=== PATIENT | female | born 1990 | race Caucasian/White ===

== ENCOUNTER 2020-07-28 11:21 | Outpatient (CLI) | payer OTHER, MEDICAID, SELFPAY | END 2020-07-28 11:22 | disposition home or self-care (01) | PROVIDERS: Visit Provider Internal Medicine | DX: N91.2 Amenorrhea, unspecified (principal) | CPT/HCPCS: 84702 ==

== ENCOUNTER 2020-07-30 10:06 | Outpatient (CLI) | payer OTHER, MEDICAID, SELFPAY ==
[2020-07-30 11:08] LABS: HCG Quantitative 32.89 mIU/mL; Progesterone 10.16 ng/mL
== END 2020-07-30 10:07 | disposition home or self-care (01) ==
PROVIDERS: PCP Family Medicine; Visit Provider Obstetrics & Gynecology Reproductive Endocrinology
DX: N91.2 Amenorrhea, unspecified (principal)
CPT/HCPCS: 36415; 84144; 84702

== ENCOUNTER 2020-08-01 08:24 | Outpatient (CLI) | payer OTHER, MEDICAID, SELFPAY ==
[2020-08-01 09:25] LABS: HCG Quantitative 16.28 mIU/mL; Progesterone 0.433 ng/mL
== END 2020-08-01 08:25 | disposition home or self-care (01) ==
PROVIDERS: PCP Family Medicine; Visit Provider Obstetrics & Gynecology Reproductive Endocrinology
DX: N91.2 Amenorrhea, unspecified (principal)
CPT/HCPCS: 36415; 84144; 84702

== ENCOUNTER 2020-08-05 10:13 | Outpatient (CLI) | payer OTHER, MEDICAID, SELFPAY ==
[2020-08-05 11:31] LABS: HCG Quantitative 0.72 mIU/mL
== END 2020-08-05 10:14 | disposition home or self-care (01) ==
PROVIDERS: PCP Family Medicine; Visit Provider Nurse Practitioner Women's Health
DX: N92.6 Irregular menstruation, unspecified (principal)
CPT/HCPCS: 36415; 84702

== ENCOUNTER 2020-09-09 11:15 | Outpatient (CLI) | payer OTHER, MEDICAID, SELFPAY ==
[2020-09-09 12:28] LABS: HCG Quantitative 86.06 mIU/mL
[2020-09-09 13:31] LABS: Progesterone > 60.0 ng/mL
== END 2020-09-09 11:16 | disposition home or self-care (01) ==
PROVIDERS: PCP Family Medicine; Visit Provider Obstetrics & Gynecology Reproductive Endocrinology
DX: N92.6 Irregular menstruation, unspecified (principal)
CPT/HCPCS: 36415; 84144; 84702

== ENCOUNTER 2020-09-11 08:08 | Outpatient (CLI) | payer OTHER, MEDICAID, SELFPAY ==
[2020-09-11 08:58] LABS: Progesterone 53.76 ng/mL
== END 2020-09-11 08:09 | disposition home or self-care (01) ==
LOC: LAB 08:14
PROVIDERS: PCP Family Medicine; Visit Provider Obstetrics & Gynecology Reproductive Endocrinology
DX: N92.6 Irregular menstruation, unspecified (principal)
CPT/HCPCS: 36415; 84144; 84702

== ENCOUNTER 2020-10-11 10:54 | Emergency (ER) | payer OTHER, MEDICAID, SELFPAY ==
--- NOTE | 2020-10-11 | USR_ITS ---
NOTE: Report was unsigned for reason: Order was edited. Original Signature date and time was: 10/11/2020 1319 PROCEDURE INFORMATION: Exam: US First Trimester, Transabdominal. Additional Gestation. Exam date and time: 10/11/2020 11:32 AM Age: 30 years old Clinical indication: Lmp or gestational age (in weeks): 8 weeks 3 days; Other: Vaginal bleeding; ; Patient HX: Twins TECHNIQUE: Imaging protocol: Real-time transabdominal obstetrical ultrasound of the maternal pelvis and a first trimester with image documentation. Additional gestation was evaluated. COMPARISON: [facility] OB > 14 weeks 03/18/2017 9:09 AM FINDINGS: GESTATION: Number of fetuses: 2 (there are 2 gestational sacs) Multifetal identity: Baby B, and baby A Gestation: There are 2 Intrauterine gestation. Both with Yolk sac (A 4.8 mm) , (B 4 mm) . Heart rate: Baby A:189 BPM . Baby B: 176 BPM Placenta: Not formed baby A or B. No subchorionic bleed. Amniotic fluid: Amniotic and coelomic fluid are normal for gestational age. BIOMETRY: Gestational age (AUA): Baby A: CRL 1.9 cm 8 weeks 3 days CLARK 05/20/2021. Baby B: CRL 1.65 cm 8 weeks 1 day CLARK 05/22/2021. The uterus measures 12 cm x 6.5 cm x 7.3 cm A cervical myometrial cyst is seen 7 mm x 3.7 mm x 5.8 mm. Right ovary measures 4 cm x 3.7 cm x 2.8 cm. A follicular cyst is present 2 cm x 1.6 cm x 1.8 cm. The left ovary measures 4.5 cm x 2.9 cm x 3.1 cm The urinary bladder does not show intrinsic abnormalities. IMPRESSION: 1. Intrauterine twin gestation 2. Baby A 8 weeks 3 days CLARK 05/20/2020 was 3. Baby B 8 weeks 1 day CLARK 05/22/2021 4. Cervical myometrial cyst. 5. Left ovary follicular cyst 6. Negative uterine myometrium . 7. Urinary bladder is unremarkable MTDD
[2020-10-11 10:55] VITALS: BP 129/86; PULSE 113; RESP 18; TEMP 36.7; O2SAT 100; BMI 22.8
[2020-10-11 11:03] VITALS: BP 129/86; PULSE 95; RESP 18; O2SAT 100
[2020-10-11 11:15] VITALS: BP 129/86; PULSE 120; RESP 18; O2SAT 99
--- NOTE | 2020-10-11 11:15 | USR_ITS ---
NOTE: Report was unsigned for reason: Order was edited. Original Signature date and time was: 10/11/2020 1319 PROCEDURE INFORMATION: Exam: US First Trimester, Transabdominal. Additional Gestation. Exam date and time: 10/11/2020 11:32 AM Age: 30 years old Clinical indication: Lmp or gestational age (in weeks): 8 weeks 3 days; Other: Vaginal bleeding; ; Patient HX: Twins TECHNIQUE: Imaging protocol: Real-time transabdominal obstetrical ultrasound of the maternal pelvis and a first trimester with image documentation. Additional gestation was evaluated. COMPARISON: [facility] OB > 14 weeks 03/18/2017 9:09 AM FINDINGS: GESTATION: Number of fetuses: 2 (there are 2 gestational sacs) Multifetal identity: Baby B, and baby A Gestation: There are 2 Intrauterine gestation. Both with Yolk sac (A 4.8 mm) , (B 4 mm) . Heart rate: Baby A:189 BPM . Baby B: 176 BPM Placenta: Not formed baby A or B. No subchorionic bleed. Amniotic fluid: Amniotic and coelomic fluid are normal for gestational age. BIOMETRY: Gestational age (AUA): Baby A: CRL 1.9 cm 8 weeks 3 days CLARK 05/20/2021. Baby B: CRL 1.65 cm 8 weeks 1 day CLARK 05/22/2021. The uterus measures 12 cm x 6.5 cm x 7.3 cm A cervical myometrial cyst is seen 7 mm x 3.7 mm x 5.8 mm. Right ovary measures 4 cm x 3.7 cm x 2.8 cm. A follicular cyst is present 2 cm x 1.6 cm x 1.8 cm. The left ovary measures 4.5 cm x 2.9 cm x 3.1 cm The urinary bladder does not show intrinsic abnormalities. MTDD
--- NOTE | 2020-10-11 11:17 | ED_ITS ---
HPI - General: Chief complaint: Vaginal Bleeding Stated complaint: 8 WKS PREG: SPOTTING, DR SPARKLE PAULA[facility] Time Seen by Provider: 10/11/20 10:57 History of Present Illness: HPI Narrative: 30-year-old female G2, P1 at approximately 8 weeks gestation with a twin gestation.. She is to be seeing a Dr. Oro in [place]. She had been seeing Dr. Aranda. She states yesterday she had some dark blood/brownish discharge that seemed like blood. Today she is slightly reddish. She denies dysuria urgency or frequency no abdominal pain or cramping. She has previously had an ultrasound to confirm intrauterine . Significant abdominal pain no dysuria urgency or frequency. MD Complaint: vaginal bleeding Onset (ago): hour(s) Pain Consistency: intermittent Relieving factors: none Exacerbating factors: none Vaginal bleeding: light Patient : Yes OB History - Current : no complications OB History - Previous Pregnancies: no complications Associated symptoms: Deny abdominal pain, dyspareunia, dysuria, headache(s), malaise, nausea, rash, seizures, short of breath, syncope, vaginal bleeding, vaginal discharge, visual changes, vomiting or weakness Review of Systems Const: Denies: malaise ENMT: Denies: throat pain, ear or mastoid pain, nasal discharge or nasal congestion Card: Denies: syncope Resp: Denies: dyspnea, productive cough or non-productive cough GI: Denies: abdominal pain, nausea or vomiting : Denies: dysuria, vaginal discharge or dyspareunia Skin/Breast: Denies: rash or pruritus Neuro: Denies: headache(s) Physical Exam Const: COMMON NORMALS: no acute distress GENERAL APPEARANCE: cooperative and comfortable ORIENTATION/CONSCIOUSNESS: Yes awake, Yes oriented to person, Yes oriented to place and Yes oriented to time HENMT: COMMON NORMALS: normocephalic, atraumatic and hearing grossly normal bilaterally HEAD & SCALP: normocephalic and atraumatic Neck/C-Spine: COMMON NORMALS: no JVD Resp: COMMON NORMALS: normal respiratory effort, No retractions, No use of accessory muscles and clear to auscultation bilaterally AUSCULTATION: clear to auscultation bilaterally Cardio: COMMON NORMALS: no JVD, regular rate, regular rhythm and No murmurs present (Cardio) RATE: regular rate RHYTHM: regular rhythm GI: COMMON NORMALS: Soft to palpation and No hepatosplenomegaly present AUSCULTATION: Yes normoactive bowel sounds PALPATION: Yes Soft to palpation, No Tenderness to palpation present (GI), No Guarding due to palpation present (GI) and Yes No hepatosplenomegaly present : COMMON NORMALS: Yes no CVA tenderness BLADDER/KIDNEY EXAM: Yes no CVA tenderness SPECULUM EXAM - VAGINA: No vaginal bleeding OB/EXTERNAL & SPECU LUM: No vaginal bleeding OTHER: Patient placed in dorsolithotomy position no active bleeding vaginal introitus speculum introduced cervix visualized cultures done Back/Pelvis: COMMON NORMALS: no CVA tenderness Extremity: COMMON NORMALS: normal to inspection, capillary refill normal, no clubbing, cyanosis or edema, no calf tenderness and no pedal edema Neuro: SENSORIUM/ORIENTATION: Yes oriented to person, Yes oriented to place and Yes oriented to time Skin: COMMON NORMALS: no rashes or lesions noted GENERAL SKIN EXAM: no rashes or lesions noted Course Vital Signs: Vital signs: Vital Signs Temperature 98.1 F 10/11/20 10:55 Pulse Rate 120 H 10/11/20 11:15 Respiratory Rate 18 10/11/20 11:15 Blood Pressure 129/86 10/11/20 11:15 Pulse Oximetry 99 10/11/20 11:15 MDM - OB/Uterine Contractions MDM Narrative: Medical decision making narrative: No active vaginal bleeding noted on pelvic exam cultures done we will discharge patient follow-up with primary care return if has worsening symptoms Lab Data: Labs: Lab Results 10/11/20 10/11/20 10/11/20 Range/Units 11:18 11:18 11:18 WBC 6.5 (4.0-10.0) 10^3/ uL RBC 4.47 (4.1-5.3) 10^6/u L Hgb 13.7 (11.5-15.3) g/dL Hct 39.9 (37.0-47.0) % MCV 89.3 (81-99) fL MCH 30.6 (28.0-34.0) pg MCHC 34.3 (30.0-36.0) g/dL RDW 11.7 L (12.1-15.1) % Plt Count 223 (130-400) 10^3/c mm MPV 8.4 (7.4-10.4) fL Neut % (Auto) 76.8 % Lymph % (Auto) 13.0 % [place] % (Auto) 8.2 % Eos % (Auto) 1.1 % Baso % (Auto) 0.6 % Neut # (Auto) 4.96 (1.8-7.7) 10^3/u L Lymph # (Auto) 0.8 (0.8-4.8) 10^3/u L [place] # (Auto) 0.5 (0.2-0.9) 10^3/u L Eos # (Auto) 0.1 (0.0-0.8) 10^3/u L Baso # (Auto) 0.0 (0.0-0.1) 10^3/u L Nucleated RBC % (a uto) 0 % Nucleated RBCs # 0.0 /100WBC Sodium 136 (136-145) mmol/L Potassium 4.1 (3.5-5.1) mmol/L Chloride 104 (98-107) mmol/L Carbon Dioxide 23 (22-29) mmol/L Anion Gap 13.1 (5-19) BUN 6 (6-20) mg/dL Creatinine 0.5 (0.5-0.9) mg/dL GFR Calculation 146.9 H (90-130) mL/min Glucose 86 (65-115) mg/dL Calculated Osmolal ity 279 L (285-295) mOsm/k g Calcium 8.9 (8.5-10.5) mg/dL Total Bilirubin 0.3 (0.15-1.2) mg/dL AST 10 (0-32) U/L ALT 7 (0-33) U/L Alkaline Phosphata se 76 (35-105) IU/L Total Protein 7.3 (6.6-8.7) g/dL Albumin 4.6 (3.5-5.2) g/dL Globulin 2.7 (1.3-4.6) g/dL Ser , Jarad i-Qnt 571540.00 mIU/mL Urine Color (Yellow) Urine Appearance (CLEAR) Urine pH (5-7) Ur Specific Gravit y (1.005-1.030) Urine Protein (Negative) Urine Glucose (UA) (Normal) Urine Ketones (Negative) Urine Blood (Negative) Urine Nitrate (Negative) Urine Bilirubin (Negative) Urine Urobilinogen (Negative) mg/dL Ur Leukocyte Abiola ase (Negative) Blood Type A Positive Rho(D) Type Positive / 4+ 10/11/20 Range/Units 11:28 WBC (4.0-10.0) 10^3/ uL RBC (4.1-5.3) 10^6/u L Hgb (11.5-15.3) g/dL Hct (37.0-47.0) % MCV (81-99) fL MCH (28.0-34.0) pg MCHC (30.0-36.0) g/dL RDW (12.1-15.1) % Plt Count (130-400) 10^3/c mm MPV (7.4-10.4) fL Neut % (Auto) % Lymph % (Auto) % [place] % (Auto) % Eos % (Auto) % Baso % (Auto) % Neut # (Auto) (1.8-7.7) 10^3/u L Lymph # (Auto) (0.8-4.8) 10^3/u L [place] # (Auto) (0.2-0.9) 10^3/u L Eos # (Auto) (0.0-0.8) 10^3/u L Baso # (Auto) (0.0-0.1) 10^3/u L Nucleated RBC % (a uto) % Nucleated RBCs # /100WBC Sodium (136-145) mmol/L Potassium (3.5-5.1) mmol/L Chloride (98-107) mmol/L Carbon Dioxide (22-29) mmol/L Anion Gap (5-19) BUN (6-20) mg/dL Creatinine (0.5-0.9) mg/dL GFR Calculation (90-130) mL/min Glucose (65-115) mg/dL Calculated Osmolal ity (285-295) mOsm/k g Calcium (8.5-10.5) mg/dL Total Bilirubin (0.15-1.2) mg/dL AST (0-32) U/L ALT (0-33) U/L Alkaline Phosphata se (35-105) IU/L Total Protein (6.6-8.7) g/dL Albumin (3.5-5.2) g/dL Globulin (1.3-4.6) g/dL Ser , Jarad i-Qnt mIU/mL Urine Color Straw (Yellow) Urine Appearance Clear (CLEAR) Urine pH 7 (5-7) Ur Specific Gravit y 1.005 (1.005-1.030) Urine Protein Neg (Negative) Urine Glucose (UA) Norm (Normal) Urine Ketones Negative (Negative) Urine Blood Neg (Negative) Urine Nitrate Negative (Negative) Urine Bilirubin Neg (Negative) Urine Urobilinogen Norm (Negative) mg/dL Ur Leukocyte Abiola ase Negative (Negative) Blood Type Rho(D) Type Discharge Plan Discharge Patient Disposition: Home Clinical Impression: Hemorrhage of in first trimester Condition: Stable Prescriptions: No Action Euthyrox 75 mcg tablet 75 mcg PO DAILY RF: 0 metformin 750 mg tablet extended release 24 hr 750 mg PO DAILY RF: 0 1 tab PO DAILY RF: 0 iron 1 tab PO DAILY RF: 0 Discharge Orders: Discharge ED (Routine); Ordered 10/11/20 Ordered By: Jose Ortiz Referrals: Lucy Aranda MD [Primary Care Provider] - Discharge Diet: Usual diet Discharge Activity: Resume usual activity Patient Instructions: Opioid Safety Activity Restrictions/Additional Instructions: Follow-up with your sample carrier as soon as you are able. Coding Level of Care Code ED Validation Leader for Ninfa Fwd Exam Comprehensive
[2020-10-11 11:30] LABS: Basophils % 0.6 %; Eosinophils # 0.1 10^3/uL (0.0-0.8); Eosinophils % 1.1 %; Hematocrit 39.9 % (37.0-47.0); Hemoglobin 13.7 g/dL (11.5-15.3); Lymphocytes # 0.8 10^3/uL (0.8-4.8); Mean Corpuscular HGB Conc 34.3 g/dL (30.0-36.0); Mean Corpuscular Hemoglobin 30.6 pg (28.0-34.0); Mean Corpuscular Volume 89.3 fL (81-99); Mean Platelet Volume 8.4 fL (7.4-10.4); Monocytes # 0.5 10^3/uL (0.2-0.9); Monocytes % 8.2 %; Neutrophils # 4.96 10^3/uL (1.8-7.7); Neutrophils % 76.8 %; Nucleated Red Blood Cells % 0 %; Platelet Count 223 10^3/cmm (130-400); Red Blood Count 4.47 10^6/uL (4.1-5.3); Red Cell Distribution Width 11.7 % (12.1-15.1); White Blood Count 6.5 10^3/uL (4.0-10.0)
[2020-10-11 11:38] LABS: Add Urine Microscopic? NO; Charge for UA Resulting for Rev
[2020-10-11 11:41] LABS: Bilirubin Urine Neg (Negative); Blood Urine Neg (Negative); Glucose Urine UA Norm (Normal); Ketones Urine Negative (Negative); Leukocyte Esterase Urine Negative (Negative); Nitrate Urine Negative (Negative); Protein Urine Neg (Negative); Specific Gravity, Urine 1.005 (1.005-1.030); Urine Appearance Clear (CLEAR); Urine Color Straw (Yellow); Urobilinogen Urine Norm (Negative); pH Urine 7 (5-7)
[2020-10-11] MEDS: sodium chloride 0.9% 1,000 ML 999 ML IV (12:09)
--- NOTE | 2020-10-11 12:09 | PC.ADMIT ---
[email or web address] [facility] Admission Note: The patient,hTeresa Meyer,30 y/o, was given written information regarding hospital policies, unit procedures and contact persons. Patient's smoking status: . Vital Signs - 8 hr 10/11/20 10:55 10/11/20 11:03 10/11/20 11:15 Temperature 98.1 F Pulse Rate 95 120 H Pulse Rate [Monitor] 113 H Respiratory Rate 18 18 18 Blood Pressure 129/86 129/86 Blood Pressure [Right Arm] 129/86 Pulse Oximetry 100 100 99
[2020-10-11 12:20] LABS: Alanine Aminotransferase 7 U/L (0-33); Albumin Level 4.6 g/dL (3.5-5.2); Alkaline Phosphatase 76 IU/L (35-105); Anion Gap 13.1 (5-19); Aspartate Amino Transferase 10 U/L (0-32); Blood Urea Nitrogen 6 mg/dL (6-20); Calcium 8.9 mg/dL (8.5-10.5); Carbon Dioxide 23 mmol/L (22-29); Chloride 104 mmol/L (98-107); Globulin 2.7 g/dL (1.3-4.6); Glomerular Filtration Rate 146.9 mL/min (90-130); Glucose 86 mg/dL (65-115); Osmolality Calculated 279 mOsm/kg (285-295); Potassium 4.1 mmol/L (3.5-5.1); Sodium 136 mmol/L (136-145); Total Bilirubin 0.3 mg/dL (0.15-1.2); Total Protein 7.3 g/dL (6.6-8.7)
== END 2020-10-11 14:05 | disposition home or self-care (01) ==
PROVIDERS: Emergency Provider Family Medicine; PCP Family Medicine
DX: O20.9 Hemorrhage in early pregnancy, unspecified (principal); Z3A.08 8 weeks gestation of pregnancy; O30.091 Twin pregnancy, unable to determine number of placenta and number of amniotic sacs, first trimester
CPT/HCPCS: 76801; 76802; 76805; 76810; 76817; 80053; 81003; 84702; 85025; 86900; 87210; 87491; 87591; 96360; 99283; E0352; J7030

== ENCOUNTER → 2022-10-21 09:15 | Outpatient (BNVA) | payer OTHER, MEDICAID, SELFPAY | PROVIDERS: PCP Family Medicine; Referring Provider Emergency Medicine; Visit Provider Student in an Organized Health Care Education/Training Program | DX: M23.306 Other meniscus derangements, unspecified meniscus, right knee (principal); M25.861 Other specified joint disorders, right knee | CPT/HCPCS: 73560; 73565 ==

== ENCOUNTER 2022-11-03 07:20 | Outpatient (CLI) | payer OTHER, MEDICAID, SELFPAY ==
--- NOTE | 2022-11-03 07:15 | MR_ITS ---
WS: [id number] MRI RIGHT KNEE HISTORY: knee pain COMPARISON: Radiograph 10/21/2022 Anterior cruciate ligament: Intact. Posterior cruciate ligament: Intact. Medial collateral ligament: Intact. Posterior lateral corner structures: Intact. Medial menisci: There is increased T2 signal extending along the superior articular surface posterior horn extending through the cartilage. Although no typical meniscal tear is identified. Lateral meniscus: Intact. Normal signal, size and shape. Extensor mechanism: Distal quadriceps tendon and patellar tendons are intact. Fluid and soft tissue: No joint effusion. No Barbosa's cyst. Osseous and articular structures: Patellofemoral compartment: Normal. Medial compartment: No significant narrowing of the joint space. Osteochondral injury involving the s urface of the femoral condyle towards the intercondylar notch. There is also thickening of the superi or surface of the posterior horn medial meniscus at this location. No marrow edema or fracture. Lateral compartment: Negative. There is a well-circumscribed 8 x 13 mm mixed signal nodule embedded within the fat posterior to the distal femur. Probably calcification. No adjacent inflammation or edema. MR/MR knee RT wo con* [id number] IMPRESSION: 1. Meniscal and associated cartilage injury involving the posterior medial com partment. Abnormal signal along the superior articular surface posterior horn m edial meniscus extending into the cartilage. Probably contusion type injury wit h injury to the cartilage. No marrow edema. 2. Normal ACL. 3. Mixed signal well-circumscribed ovoid 8 x 13 mm nodule posterior to the fem oral diaphysis. Not visualized radiographically. Probably calcific deposit base d upon its appearance.
== END 2022-11-03 07:21 | disposition home or self-care (01) ==
LOC: RAD 07:21
PROVIDERS: PCP Family Medicine; Visit Provider Student in an Organized Health Care Education/Training Program
DX: S83.8X1A Sprain of other specified parts of right knee, initial encounter (principal); X58.XXXA Exposure to other specified factors, initial encounter; M25.561 Pain in right knee; R22.41 Localized swelling, mass and lump, right lower limb
CPT/HCPCS: 73721

== ENCOUNTER 2025-05-28 11:24 | Outpatient (CLI) | payer OTHER, SELFPAY ==
--- NOTE | 2025-05-28 11:15 | USR_ITS ---
PROCEDURE INFORMATION: Exam: US Soft Tissue Head and Neck, Thyroid Exam date and time: 05/28/2025 11:48 AM Age: 35 years old Clinical indication: Condition or disease; Thyroid disorder; Other: Hypothyroidism; Additional info: See below, make before next appointment with Dr solares TECHNIQUE: Imaging protocol: Real-time ultrasound scan of the neck with image documentation. Exam focused on the thyroid. COMPARISON: No relevant prior studies available. FINDINGS: The right lobe measures 3.3 x 1.2 x 1.2 cm. The left lobe measures 2.6 x 1.2 x 1.0 cm. Isthmus is about 1 mm in thickness. There is heterogeneous architecture within the thyroid tissue with no clearly defined nodule. No increased vascularity. A small normal-appearing right submandibular lymph node is seen. US/US thyroid [id number] IMPRESSION: Small thyroid lobes which should be correlated with the patient's overall body habitus. Heterogeneous thyroid tissue with no definable nodule.
== END 2025-05-28 11:25 | disposition home or self-care (01) ==
LOC: RAD 11:24
PROVIDERS: PCP Family Medicine; Visit Provider Internal Medicine
DX: E28.2 Polycystic ovarian syndrome (principal); E03.9 Hypothyroidism, unspecified
CPT/HCPCS: 76536